=== PATIENT | male | born 1985 | race Caucasian/White ===

== ENCOUNTER 2016-07-01 12:33 | Day surgery (SDC) | payer OTHER ==
[2016-06-30 10:44] VITALS: BMI 27.0
[2016-07-01] VITALS (13 sets, daily range): BP systolic 108–125; BP diastolic 63–81; PULSE 50–74; RESP 13–21; Ht 175.3 cm; Wt 86.0 kg
[~2016-07-01] VITALS: Ht 175.3 cm; Wt 86.0 kg
[2016-07-01] MEDS ORDERED: FENTAnyl 50 MCG/ML VIAL ONE (14:43)
[2016-07-01] MEDS ORDERED: MIDAZOLAM 1 MG/ML 2 ML INJ ONE (14:44)
--- NOTE | 2016-07-01 14:45 | HPN ---
Date/Time of Note Date/Time of Note DATE: 07/01/16 TIME: 14:44 Interval H&P Admission Note Pt. seen H&P reviewed: No system changes INR 1.6 . Apparently subtherapeutic to begin with. Off meds for 4 days. MAHENDRA HERRING MD Jul 01, 2016 14:44
[2016-07-01] MEDS ORDERED: PROPOFOL 20 ML ONE (14:59)
[2016-07-01] MEDS ORDERED: LIDOCAINE 2% (SDV) 5 ML INJ ONE (14:59)
[2016-07-01] MEDS ORDERED: GLYCOPYRROLATE 0.4 MG INJ ONE (14:59)
[2016-07-01] MEDS ORDERED: METOCLOPRAMIDE 10 MG INJ ONE (14:59)
[2016-07-01] MEDS ORDERED: NEOSTIGMINE 3 MG/3 ML SYRINGE ONE (14:59)
[2016-07-01] MEDS ORDERED: ONDANSETRON 4 MG INJ ONE (14:59)
[2016-07-01] MEDS ORDERED: ROCURONIUM 50 MG INJ ONE (14:59)
[2016-07-01] MEDS ORDERED: DEXAMETHASONE 4 MG/ML 1 ML INJ ONE (15:01)
[2016-07-01] MEDS ORDERED: HYDROCODONE/APAP (5/325) TAB PO PRN (15:30)
[2016-07-01] MEDS ORDERED: FENTAnyl 50 MCG/ML VIAL IV PRN (15:30)
[2016-07-01] MEDS ORDERED: MEPERIDINE 25 MG INJ IV PRN (15:30)
[2016-07-01] MEDS ORDERED: DIPHENHYDRAMINE 50 MG INJ IV PRN (15:30)
[2016-07-01] MEDS ORDERED: METOCLOPRAMIDE 10 MG INJ IV PRN (15:30)
[2016-07-01] MEDS ORDERED: ONDANSETRON 4 MG INJ IV PRN (15:30)
--- NOTE | 2016-07-01 15:30 | OPR ---
Date/Time of Note Date/Time of Note DATE: 07/01/16 TIME: 15:26 Operative Report Procedure Date: Jul 01, 2016 Preoperative Diagnosis Chronic tonsillitis Postoperative Diagnosis Same Operation Performed Tonsillectomy, intracapsular. Estimated Blood Loss: none Complications: None Pt Condition Post Procedure: stable Disposition: PACU Indications Recurrent tonsillitis Operative Findings Symmetric hypertrophy. Procedure Description The patient was identified in the holding area with family. We had a discussion with the family to confirm understanding of the risks, benefits, alternatives, and postoperative care associated with the operation. Informed consent was obtained. The patient was taken to the operating room and laid supine on the operating room table. General endotracheal anesthesia was achieved without difficulty. The eyes and face were taped and draped for protection. A Proton Therapyvor mouth gag was used to extend the mouth open. Tonsils were evaluated by inspection and palpation. The palate was evaluated and found to be intact. The left tonsil was addressed first with the Coblation wand. Intracapsular resection was performed in superficial to deep fashion until the superior pharyngeal constrictor muscle was reached. The muscle was not violated and a small amount of tonsil tissue was left overlying. The contralateral tonsil was resected in similar fashion. The oral cavity and pharynx were irrigated with saline. Inspection revealed no bleeding or oozing. All instruments were removed. Anesthesia was asked to awaken the patient. The patient was extubated and taken to the PACU in stable condition. MAHENDRA HERRING MD Jul 01, 2016 15:30
== END 2016-07-01 17:45 | disposition home or self-care (01) ==
LOC: SDS 12:33
PROVIDERS: ATTEND Otolaryngology
DX: J35.01 Chronic tonsillitis (principal); Z86.73 Personal history of transient ischemic attack (TIA), and cerebral infarction without residual deficits; E66.9 Obesity, unspecified; Z68.28 Body mass index [BMI] 28.0-28.9, adult
CPT/HCPCS: 42826; J1100; J2250; J2405; J2710; J3010; Z7512; Z7610; J2765

== ENCOUNTER 2016-07-05 17:42 | Emergency (ER) | payer OTHER ==
[~2016-07-05] VITALS: Ht 165.1 cm; Wt 79.9 kg
[2016-07-05 17:49] VITALS: Ht 165.1 cm; Wt 79.9 kg
--- NOTE | 2016-07-05 19:04 | ERA ---
ER Documentation Chief Complaint Date/Time DATE: 07/05/16 TIME: 19:04 Chief Complaint tonsilectomy last thursday, stated spiitting blood, no active bleeding now HPI 30-year-old man with a history of hypercoagulable state on Coumadin, multiple CVAs, third-degree heart block status post pacemaker placement, recent tonsillectomy on 07/02/16 presents after coughing up a large clot of blood and feeling slight oozing down the back of his throat. Patient was seen by Dr. Ramon for ablation of tonsils due to recurrent tonsillitis. He had a procedure done on July 02, 2016 and is now postoperative day 3. Patient reports that he was doing well until earlier today when he started coughing and noticed he coughed up a large clot of blood. Reports the blood was dark color, brownish. No evidence of bright red blood or hematemesis. No coffee-ground emesis. Since then he reports having a sensation of feeling slight oozing of blood in the back of his throat. When he spits he reports seeing streaks of bright red blood in his spit but that appears to be clearing. He denies any symptoms of anemia at this time. He is not taking his Coumadin but is still taking subQ Lovenox. Denies any chest pain , lightheadedness, or syncope. ROS All systems reviewed and are negative except as per history of present illness. Medications Home Meds Active Scripts Acetaminophen-Codeine* (Tylenol-Codeine* Liq) [id number] Elix, 5 ML PO Q6H Y for PAIN for 7 Days, #4 OZ Prov:DADA CONNOLLY MD 07/05/16 Reported Medications Enoxaparin Sodium* (Lovenox*) 40 Mg/0.4 Ml Syringe, 40 MG SC Q12, SYR 07/05/16 Allergies Allergies: Coded Allergies: No Known Allergy (Unverified , 07/05/16) PMhx/Soc hypercoagulable state on Coumadin, multiple CVAs, third-degree heart block status post pacemaker placement, recent tonsillectomy on 07/02/16. History of Surgery: Yes (pacemaker) Anesthesia Reaction: Yes (n/v) Hx Neurological Disorder: No Hx Respiratory Disorders: No Hx Cardiac Disorders: Yes (3rd degree heart block, pacemaker-pt on blood thinners) Hx Psychiatric Problems: No Hx Miscellaneous Medical Probl: No Hx Alcohol Use: Yes (social) Hx Tobacco Use: No Smoking Status: Never smoker Physical Exam Vitals Vital Signs Date Time Temp Pulse Resp B/P Pulse Ox O2 Delivery O2 Flow Rate FiO2 07/05/16 21:40 98.7 75 20 136/96 100 Room Air 07/05/16 19:00 98.7 71 20 141/104 99 Room Air 07/05/16 17:49 98.7 78 20 140/89 99 Physical Exam General: alert, well appearing, and in no distress, AOx4. normal pulse oximetry. Head: Atraumatic, normocephalic Eyes: pupils equal and reactive, extraocular eye movements intact, sclera anicteric. Ears: bilateral TM's and external ear canals normal. Nose: normal and patent, no erythema, discharge or polyps. Oropharynx: moist mucous membranes, pharynx normal without lesions. Neck: supple, no significant adenopathy. Heart: normal rate, regular rhythm, normal S1, S2, no murmurs, rubs, clicks or gallops. Peripheral pulses: normal Lungs: clear to auscultation, no wheezes, rales or rhonchi, symmetric air entry and normal work of breathing. Abdomen: soft, nontender, nondistended, no masses or organomegaly Extremities: no joint tenderness, deformity or swelling. Skin: normal coloration and turgor, no rashes, no suspicious skin lesions noted. Neurologic: Alert, moving all extremities symmetrically x 4, sensation grossly intact, no gross deficits Result Diagram: 07/05/16191407/05/161914 Results 24 hrs Laboratory Tests Test 07/05/16 19:15 Activated Partial Thromboplast Time 30.8Sec Anion Gap 22 Basophils # 0.010^3/ul Basophils % 0.1% Blood Morphology Comment Blood Urea Nitrogen 10mg/dl Calcium Level 9.6mg/dl Carbon Dioxide Level 26mmol/L Chloride Level 98mmol/L Creatinine 0.78mg/dl Eosinophils # 0.210^3/ul Eosinophils % 1.9% Glucose Level 110mg/dl Hematocrit 47.3% Hemoglobin 15.8g/dl Lymphocytes # 1.710^3/ul Lymphocytes % 16.3% Mean Corpuscular Hemoglobin 27.8pg Mean Corpuscular Hemoglobin Concent 33.3g/dl Mean Corpuscular Volume 83.4fl Mean Platelet Volume 9.1fl Mix PT Patient Plasma Immediate Sec Monocytes # 0.710^3/ul Monocytes % 6.9% Neutrophils # 7.710^3/ul Neutrophils % 74.8% Nucleated Red Blood Cells # 0.010^3/ul Nucleated Red Blood Cells % 0.0/100WBC PT Mixing Studies Interpretation Platelet Count 53048^3/UL Potassium Level 3.7mmol/L Prothrombin Time 13.5Sec Red Blood Count 5.6710^6/ul Red Cell Distribution Width 14.0% Sodium Level 142mmol/L White Blood Count 10.210^3/ul Current Medications Medications (Trade) Dose Ordered Sig/Amie Route PRN Reason Start Time Stop Time Status Last Admin Dose Admin Hydrogen Peroxide (Hydrogen Peroxide) 1 applic ONCE ONCE TOP 07/05/16 20:00 07/05/16 20:01 DC 07/05/16 20:51 Procedures/MDM LAB INTERPRETATION: Labs unremarkable. Unable to fully interpret coags given patient is only on Lovenox. MEDICAL DECISION MAKIN-year-old man with a history of hypercoagulable state on Coumadin, multiple CVAs, third-degree heart block status post pacemaker placement, recent tonsillectomy on 07/02/16 presents after coughing up a large clot of blood and feeling slight oozing down the back of his throat. Patient's symptoms cleared with peroxide gargles and labs were unremarkable. Spoke with his surgeon Dr. Ramon recommended peroxide gargles and to follow-up with him on Thursday. Patient with normal hemoglobin at this time and vitals. Exam without evidence of active bleeding. Patient was given strict ER return precautions for bleeding. Departure Diagnosis: Primary Impression: Post surgical complication Condition: Good DADA CONNOLLY MD Jul 05, 2016 19:04 CONSULTATION: DADA CONNOLLY MD Jul 05, 2016 19:04
[2016-07-05 19:30] LABS: BASOPHILS % 0.1 % (0.0-2.0); EOSINOPHILS # 0.2 10^3/ul (0.0-0.5); EOSINOPHILS % 1.9 % (0.0-7.0); HEMATOCRIT 47.3 % (42.0-52.0); HEMOGLOBIN 15.8 g/dl (14.0-18.0); LYMPHOCYTES # 1.7 10^3/ul (0.8-2.9); LYMPHOCYTES % 16.3 % (15.0-51.0); MEAN CORPUSCULAR HEMOGLOBIN 27.8 pg (29.0-33.0); MEAN CORPUSCULAR HGB CONC 33.3 g/dl (32.0-37.0); MEAN CORPUSCULAR VOLUME 83.4 fl (82.0-101.0); MEAN PLATELET VOLUME 9.1 fl (7.4-10.4); MONOCYTE # 0.7 10^3/ul (0.3-0.9); MONOCYTES % 6.9 % (0.0-11.0); NEUTROPHIL # 7.7 10^3/ul (1.6-7.5); NEUTROPHILS % 74.8 % (39.0-77.0); PLATELET COUNT 179 10^3/UL (140-440); RED BLOOD COUNT 5.67 10^6/ul (4.70-6.10); UNCORRECTED WBC 10.2 10^3/ul (4.8-10.8); WHITE BLOOD COUNT 10.2 10^3/ul (4.8-10.8)
[2016-07-05 19:41] LABS: POTASSIUM 3.7 mmol/L (3.5-5.1)
[2016-07-05 19:43] LABS: CREATININE 0.78 mg/dl (0.61-1.24)
[2016-07-05 19:44] LABS: CALCIUM 9.6 mg/dl (8.4-10.2)
[2016-07-05 19:50] LABS: CONDITION 1
[2016-07-05] MEDS ORDERED: HYDROGEN PEROXIDE 118 ML TOP ONE (20:00)
[2016-07-05 20:06] LABS: PROTIME 13.5 Sec (12.2-14.2)
[2016-07-05] MEDS ORDERED: ENOX40DI14 SC (20:10)
[2016-07-05] MEDS ORDERED: UDTYLC PO (21:28)
[2016-07-05 21:40] VITALS: BP 136/96; PULSE 75; RESP 20; TEMP 98.7
== END 2016-07-05 21:40 | disposition home or self-care (01) ==
LOC: E/R 17:42
DX: J95.830 Postprocedural hemorrhage of a respiratory system organ or structure following a respiratory system procedure (principal); Z79.01 Long term (current) use of anticoagulants; Z95.0 Presence of cardiac pacemaker
CPT/HCPCS: 80048; 85025; 85335; 85730; Z7502; Z7610; 99283

== ENCOUNTER 2016-07-08 04:31 | Emergency (ER) | payer OTHER ==
[~2016-07-08] VITALS: Ht 175.3 cm; Wt 83.0 kg
[~2016-07-08 04:31] MED LIST: ENOX40DI14 SC; UDTYLC PO
[2016-07-08 04:42] VITALS: Ht 175.3 cm; Wt 83.0 kg
[2016-07-08 07:50] LABS: BASOPHILS % 0.3 % (0.0-2.0); EOSINOPHILS # 0.3 10^3/ul (0.0-0.5); EOSINOPHILS % 3.4 % (0.0-7.0); HEMATOCRIT 44.4 % (42.0-52.0); HEMOGLOBIN 14.9 g/dl (14.0-18.0); LYMPHOCYTES # 1.6 10^3/ul (0.8-2.9); LYMPHOCYTES % 18.8 % (15.0-51.0); MEAN CORPUSCULAR HEMOGLOBIN 28.1 pg (29.0-33.0); MEAN CORPUSCULAR HGB CONC 33.6 g/dl (32.0-37.0); MEAN CORPUSCULAR VOLUME 83.5 fl (82.0-101.0); MEAN PLATELET VOLUME 9.2 fl (7.4-10.4); MONOCYTE # 0.6 10^3/ul (0.3-0.9); NEUTROPHILS % 70.5 % (39.0-77.0); PLATELET COUNT 187 10^3/UL (140-440); RED BLOOD COUNT 5.32 10^6/ul (4.70-6.10); RED CELL DISTRIBUTION WIDTH 13.9 % (11.5-14.5); UNCORRECTED WBC 8.5 10^3/ul (4.8-10.8); WHITE BLOOD COUNT 8.5 10^3/ul (4.8-10.8)
[2016-07-08 07:51] LABS: CONDITION 1
[2016-07-08 07:53] LABS: INR 1.06; PARTIAL THROMBOPLASTIN TIME 29.1 Sec (25.0-35.0); PROTIME 13.8 Sec (12.2-14.2); PT RATIO 1.1
--- NOTE | 2016-07-08 08:21 | ERD ---
ER Documentation Chief Complaint Date/Time DATE: 07/08/16 TIME: 08:15 Chief Complaint SEVERE BLEEDING FROM TONSILLECTOMY WOUND, USES LOVENOX, CARDIAC HX HPI 30-year-old male presents to the emergency department complaining of coughing up blood. Patient is recently status post tonsillectomy. He was evaluated 2 days ago post tonsillectomy with bleeding from his tonsil surgery site. At that time, he had been using Coumadin intermittently as well as Lovenox intermittently. His blood counts were normal. Consultation by phone with his ENT doctor was followed up by a visit in person with his ENT doctor. According to my conversations with this physician, there is no surgical management that was required. Patient is continued to intermittently use his Lovenox on and off. He returned to the emergency department today with a small amount of coughing up blood. He reports no vomiting of blood and he reports no significant hemorrhaging. He reports no significant pain or fever. ROS All systems reviewed and are negative except as per history of present illness. Medications Home Meds Reported Medications Enoxaparin Sodium* (Lovenox*) 40 Mg/0.4 Ml Syringe, 40 MG SC Q12, SYR 07/05/16 Discontinued Scripts Acetaminophen-Codeine* (Tylenol-Codeine* Liq) [id number] Elix, 5 ML PO Q6H Y for PAIN for 7 Days, #4 OZ Prov:DADA CONNOLLY MD 07/05/16 Allergies Allergies: Coded Allergies: No Known Allergy (Unverified , 07/08/16) PMhx/Soc History of Surgery: Yes (heart surg ) Anesthesia Reaction: No Hx Neurological Disorder: No Hx Respiratory Disorders: No Hx Cardiac Disorders: Yes Hx Psychiatric Problems: No Hx Miscellaneous Medical Probl: No Hx Alcohol Use: No Hx Substance Use: No Hx Tobacco Use: No Smoking Status: Never smoker FmHx Noncontributory for chief complaint Physical Exam Vitals Vital Signs Date Time Temp Pulse Resp B/P Pulse Ox O2 Delivery O2 Flow Rate FiO2 07/08/16 04:42 98.0 74 18 137/92 97 Physical Exam GENERAL: The patient is well developed and appropriate for usual state of health in no apparent distress HEENT: Pupils equal, round, and reactive to light. EOMI. There is no scleral icterus. Patient has a clot in the right posterior oral pharynx area. No evidence of infection. No active bleeding. NECK: C-spine is soft and supple, there is no meningismus. There is no cervical lymphadenopathy. LUNGS: Clear to auscultation bilaterally. There are no rales, wheezes or rhonchi. HEART: Regular rate and rhythm, no murmurs, clicks, rubs or gallops. Result Diagram: 07/08/16 0720 Results 24 hrs Laboratory Tests Test 07/08/16 07:20 Activated Partial Thromboplast Time 29.1Sec Basophils # 0.010^3/ul Basophils % 0.3% Blood Morphology Comment Eosinophils # 0.310^3/ul Eosinophils % 3.4% Hematocrit 44.4% Hemoglobin 14.9g/dl INR International Normalized Ratio 1.06 Lymphocytes # 1.610^3/ul Lymphocytes % 18.8% Mean Corpuscular Hemoglobin 28.1pg Mean Corpuscular Hemoglobin Concent 33.6g/dl Mean Corpuscular Volume 83.5fl Mean Platelet Volume 9.2fl Monocytes # 0.610^3/ul Monocytes % 7.0% Neutrophils # 6.010^3/ul Neutrophils % 70.5% Nucleated Red Blood Cells # 0.010^3/ul Nucleated Red Blood Cells % 0.0/100WBC Platelet Count 81393^3/UL Prothrombin Time 13.8Sec Prothrombin Time Ratio 1.1 Red Blood Count 5.3210^6/ul Red Cell Distribution Width 13.9% White Blood Count 8.510^3/ul Procedures/MDM Patient was taken to a room, seen and examined. Patient had no active bleeding and was placed in observation status. Patient was observed for approximately an hour and had no bleeding. Consultations: I coordinated care with his ENT doctor and spoke by phone. No surgical management was recommended. I coordinated care with his clerk to justice and made outpatient arrangements for further anticoagulation management. Medical decision makin-year-old male with post tonsillectomy bleeding. This is complicated by his Lovenox use. At this time, he has no evidence of active bleeding. He has a nice blood clot in the back of his throat and does not require acute surgical management. His H&H are stable. I have educated him that his need for the Lovenox at this time is more harm than good and we will be keeping him off of it. Patient does have outpatient follow-up arranged for him and is appropriate for outpatient care at this time. Departure Diagnosis: Primary Impression: Post-tonsillectomy hemorrhage Condition: Stable Patient Instructions: Tonsillectomy, Post Op Bleeding Referrals: HILTON CASE MD Additional Instructions: Do not use the lovenox or the coumadin until you are seen by Dr. Case's office. You should be seen in the next 2-3 days. Return for any bleeding that is not controlled or for any other problems RACHEL MICHEL Jul 08, 2016 08:21
== END 2016-07-08 08:20 | disposition home or self-care (01) ==
LOC: E/R 04:31
DX: J95.830 Postprocedural hemorrhage of a respiratory system organ or structure following a respiratory system procedure (principal); Z79.01 Long term (current) use of anticoagulants
CPT/HCPCS: 85025; 85610; 85730; 99283